=== PATIENT | female | born 1960 | race Caucasian/White ===

== ENCOUNTER 2021-10-14 17:07 | Emergency (ER) | payer MEDICAID ==
[~2021-10-14] VITALS: Ht 160 cm; Wt 84.4 kg
[2021-10-14 17:47] VITALS: BP_SYST 133
[2021-10-14] MEDS ORDERED: MAG-AL HYDROX/SIMETH 30 ML UDC PO ONE (18:00)
[2021-10-14] MEDS ORDERED: LIDOCAINE VISCOUS 2%, 15 ML UDC MM ONE (18:00)
[2021-10-14] MEDS ORDERED: DICYCLOMINE HCL 10 MG/5 ML SOLUTION PO ONE (18:00)
[2021-10-14] MEDS ORDERED: NACL 0.9% 1,000 ML IV ONE (18:00)
[2021-10-14] MEDS ORDERED: ONDANSETRON HCL 4 MG/2 ML VIAL IVP ONE (18:00)
[2021-10-14 18:31] LABS: BASOPHILS % (AUTO) 0.2 % (0.0-2.0); EOSINOPHILS # (AUTO) 0.1 K/uL (0.0-0.4); EOSINOPHILS % (AUTO) 0.7 % (0.0-4.0); HEMATOCRIT 42.2 % (36-48); LYMPHOCYTES # (AUTO) 0.7 K/uL (1.0-5.5); LYMPHOCYTES % (AUTO) 5.8 % (20.5-51.5); MEAN CORPUSCULAR HEMOGLOBIN 28 pg (27-31); MEAN CORPUSCULAR HGB CONC 33 % (32-36); MEAN CORPUSCULAR VOLUME 83 fL (79.0-98.0); MONOCYTES # (AUTO) 0.6 K/uL (0.0-1.0); MONOCYTES % (AUTO) 4.9 % (1.7-9.3); NEUTROPHILS # (AUTO) 10.8 K/uL (1.8-7.7); NEUTROPHILS % (AUTO) 88.4 % (40.0-70.0); PLATELET COUNT (AUTO) 184 K/uL (130-430); RED BLOOD CELL COUNT(AUTO) 5.09 MIL/uL (4.2-6.2); RED CELL DISTRIBUTION WIDTH 14.2 % (9.0-15.0); WHITE BLOOD COUNT (AUTO) 12.2 K/uL (4.8-10.8)
[2021-10-14 18:40] LABS: CALCIUM 9.8 mg/dL (8.4-11.0); CREATININE 0.7 mg/dL (0.55-1.30); POTASSIUM 3.8 mmol/L (3.5-5.1)
[2021-10-14 18:45] LABS: ALBUMIN 4.6 g/dL (3.4-4.8); TOTAL BILIRUBIN 1.3 mg/dL (0.0-1.0)
[2021-10-14] MEDS ORDERED: METOCLOPRAMIDE HCL 10 MG/2 ML VIAL IVP ONE (19:30)
[2021-10-14] MEDS ORDERED: ACETAMINOPHEN 325 MG TABLET PO ONE (19:30)
[2021-10-14] MEDS ORDERED: ACETAMINOPHEN 325 MG TABLET ONE (19:43)
[2021-10-14] MEDS ORDERED: OMEP40CA20 PO (19:49)
[2021-10-14 19:59] LABS: BILIRUBIN,URINE 1+ (NEGATIVE); BLOOD, URINE 2+ (NEGATIVE); COLOR,URINE YELLOW (YELLOW); GLUCOSE,URINE NEGATIVE (NEGATIVE); KETONES,URINE 1+ (NEGATIVE); LEUKOCYTE ESTERASE ,URINE NEGATIVE (NEGATIVE); NITRITE, URINE NEGATIVE (NEGATIVE); PH,URINE 5.5 (5.0-8.0); PROTEIN URINE 1+ (NEGATIVE); UROBILINOGEN,URINE 0.2 (0.2-1.0)
[2021-10-14 20:08] LABS: CLARITY/URINE HAZY (CLEAR)
[2021-10-14] MEDS ORDERED: METH-634 PO (20:15)
[2021-10-14 20:16] VITALS: BP_SYST 116
[2021-10-14] MEDS ORDERED: DICY10CA13 PO (20:16)
[2021-10-14] MEDS ORDERED: ONDA-8 TL (20:16)
[2021-10-14 20:18] LABS: BACTERIA,URINE FEW /HPF (None Seen); MUCUS,URINE 3+ /LPF (None Seen); WBC,URINE 0-3 /HPF (0-3)
== END 2021-10-14 20:37 | disposition home or self-care (01) ==
LOC: SED 17:07
DX: A08.4 Viral intestinal infection, unspecified (principal); I10 Essential (primary) hypertension; Z79.899 Other long term (current) drug therapy
CPT/HCPCS: 36415; 80053; 81000; 83690; 85025; 96361; 96374; 96375; 99284; J2001; J2405; J2765; J7030; 93005